=== PATIENT | male | born 1980 | race African-American/Black ===

== ENCOUNTER 2018-06-23 23:52 | Emergency (ER) | payer SELFPAY ==
[~2018-06-23] VITALS: Ht 172.7 cm; Wt 63.6 kg
[~2018-06-23 23:52] MED LIST: MAPA500T17 PO; No home medications; ONDA-1 PO; PERC7.5T12 PO; TAPA5TAB PO
[2018-06-24] MEDS ORDERED: LIDOCAINE W/EPINEPHRINE 1% 20ML VIAL SC ONE (01:45)
[2018-06-24] MEDS ORDERED: CLIN150C14 PO (01:55)
[2018-06-24] MEDS ORDERED: CLINDAMYCIN 150 MG CAP PO ONE (02:00)
[2018-06-24 02:29] VITALS: BP 150/86
== END 2018-06-24 02:29 | disposition home or self-care (01) ==
LOC: M ED 23:52
DX: K04.7 Periapical abscess without sinus (principal); Z87.19 Personal history of other diseases of the digestive system

== ENCOUNTER 2020-01-07 15:01 | Emergency (ER) | payer SELFPAY ==
[~2020-01-07] VITALS: Ht 170.2 cm; Wt 67.2 kg
[~2020-01-07 15:01] MED LIST changes: +CLIN150C14 PO
[2020-01-07 15:02] VITALS: BP 135/82
== END 2020-01-07 15:52 | disposition home or self-care (01) ==
LOC: M ED 15:01
DX: R51.9 Headache, unspecified (principal)